=== PATIENT | female | born 1965 | race Two or more races ===

== ENCOUNTER 2016-10-15 10:52 | Emergency (ER) | payer MEDICAID ==
[~2016-10-15] VITALS: Ht 152.4 cm; Wt 62.0 kg
[2016-10-15] MEDS ORDERED: SODIUM CHLORIDE 0.9% 1,000 ML IV ONE (11:17)
[2016-10-15] MEDS ORDERED: LORazepam 2 MG/ML, 1ML IVPush ONE (11:30)
[2016-10-15] MEDS ORDERED: ASPIRIN 81 MG TABLET CHEW PO ONE (11:30)
[2016-10-15] MEDS ORDERED: NITR0.4T8 SL (11:40)
[2016-10-15] MEDS ORDERED: HYDR25TA6 PO (11:40)
[2016-10-15] MEDS ORDERED: LISI40TA PO (11:40)
[2016-10-15] MEDS ORDERED: [UNRECOGNIZED DRUG - REMARK] PO (11:41)
[2016-10-15 11:42] LABS: BLOOD UREA NITROGEN 14 mg/dL (7-18)
[2016-10-15 11:49] LABS: ASPARTATE AMINO TRANSFERASE 14 U/L (15-37)
[2016-10-15 11:50] LABS: IS PT STATUS REG ER OR PRE ER? YES
[2016-10-15 12:03] VITALS: BP 155/84
[2016-10-15] MEDS ORDERED: METHOCARBAMOL 750 MG TABLET PO ONE (12:30)
[2016-10-15] MEDS ORDERED: HYDROcodone/APAP 5/325 TABLET PO ONE (12:30)
[2016-10-15] MEDS ORDERED: ONDANSETRON 2MG/ML, 2ML IVPush ONE (12:30)
== END 2016-10-15 14:35 | disposition home or self-care (01) ==
LOC: ED 14:05
DX: M54.41 Lumbago with sciatica, right side (principal); D72.829 Elevated white blood cell count, unspecified; I10 Essential (primary) hypertension; Z86.73 Personal history of transient ischemic attack (TIA), and cerebral infarction without residual deficits
CPT/HCPCS: 36415; 71010; 72110; 80047; 80053; 81001; 83605; 84484; 85025; 85610; 87086; 93005; 96361; 96374; 96375; 99285; J2060; J2405; J7030

== ENCOUNTER 2016-10-15 11:05 | Emergency (ER) | payer OTHER ==
[2016-10-15] MEDS ORDERED: ASPIRIN 81 MG TABLET CHEW ONE (11:30)
[2016-10-15] MEDS ORDERED: LORazepam 2 MG/ML, 1ML ONE (11:31)
[2016-10-15] MEDS ORDERED: HYDR25TA6 PO (11:40)
[2016-10-15] MEDS ORDERED: LISI40TA PO (11:40)
[2016-10-15] MEDS ORDERED: NITR0.4T8 SL (11:40)
[2016-10-15] MEDS ORDERED: [UNRECOGNIZED DRUG - REMARK] PO (11:41)
[2016-10-15] MEDS ORDERED: ONDANSETRON 2MG/ML, 2ML ONE (12:41)
[2016-10-15] MEDS ORDERED: METHOCARBAMOL 750 MG TABLET ONE (12:41)
[2016-10-15] MEDS ORDERED: HYDROcodone/APAP 5/325 TABLET ONE (12:41)
== END 2016-10-15 11:12 ==
LOC: ED 11:10
DX: Z02.9 Encounter for administrative examinations, unspecified (principal)

== ENCOUNTER 2016-12-18 21:39 | Emergency (ER) | payer MEDICAID ==
[~2016-12-18] VITALS: Ht 152.4 cm; Wt 65.1 kg
[~2016-12-18 21:39] MED LIST: HYDR25TA6 PO; LISI40TA PO; NITR0.4T28 SL; [UNRECOGNIZED DRUG - REMARK] PO
[2016-12-18] MEDS ORDERED: HYDROcodone/APAP 5/325 TABLET PO STA (22:26)
[2016-12-18] MEDS ORDERED: ONDANSETRON ODT 4 MG PO ONE (22:30)
[2016-12-18] MEDS ORDERED: ONDANSETRON ODT 4 MG ONE (22:39)
[2016-12-18] MEDS ORDERED: HYDROcodone/APAP 5/325 TABLET ONE (22:40)
[2016-12-18 23:30] VITALS: BP 158/73
== END 2016-12-19 00:16 | disposition home or self-care (01) ==
LOC: ED 22:52
DX: S39.012A Strain of muscle, fascia and tendon of lower back, initial encounter (principal); S30.0XXA Contusion of lower back and pelvis, initial encounter; J20.8 Acute bronchitis due to other specified organisms; B97.89 Other viral agents as the cause of diseases classified elsewhere; I10 Essential (primary) hypertension; Z86.73 Personal history of transient ischemic attack (TIA), and cerebral infarction without residual deficits; F17.210 Nicotine dependence, cigarettes, uncomplicated; W19.XXXA Unspecified fall, initial encounter; Y93.89 Activity, other specified; Y99.8 Other external cause status; Y92.009 Unspecified place in unspecified non-institutional (private) residence as the place of occurrence of the external cause
CPT/HCPCS: 71020; 72072; 72110; 72220; 93005; 99284; Q0162

== ENCOUNTER 2017-03-20 22:01 | Emergency (ER) | payer MEDICAID ==
[~2017-03-20] VITALS: Ht 152.4 cm; Wt 64.0 kg
[2017-03-20] MEDS ORDERED: OXYcodone/APAP 5/325MG TABLET ONE (22:54)
[2017-03-20] MEDS ORDERED: ONDANSETRON ODT 4 MG ONE (22:54)
[2017-03-20] MEDS ORDERED: OXYcodone/APAP 5/325MG TABLET PO ONE (23:00)
[2017-03-20] MEDS ORDERED: ONDANSETRON ODT 4 MG PO ONE (23:00)
[2017-03-20 23:36] VITALS: BP 155/85
[2017-03-20 23:45] LABS: CULTURE INDICATED? YES; MICROSCOPIC INDICATED
== END 2017-03-21 00:47 | disposition home or self-care (01) ==
LOC: ED 23:59
DX: S39.012A Strain of muscle, fascia and tendon of lower back, initial encounter (principal); I10 Essential (primary) hypertension; F17.200 Nicotine dependence, unspecified, uncomplicated; X58.XXXA Exposure to other specified factors, initial encounter; Y93.89 Activity, other specified; Y99.8 Other external cause status; Y92.89 Other specified places as the place of occurrence of the external cause
CPT/HCPCS: 72110; 81001; 87086; 99285; Q0162

== ENCOUNTER 2017-05-09 13:57 | Emergency (ER) | payer MEDICAID ==
[~2017-05-09] VITALS: Ht 152.4 cm; Wt 63.2 kg
[2017-05-09] MEDS ORDERED: FAMOTIDINE 20 MG TABLET PO ONE (14:30)
[2017-05-09] MEDS ORDERED: FAMOTIDINE 20 MG TABLET ONE (15:03)
[2017-05-09 15:12] VITALS: BP 149/90
[2017-05-09] MEDS ORDERED: HYDROcodone/APAP 5/325 TABLET PO ONE (15:33)
[2017-05-09] MEDS ORDERED: HYDROcodone/APAP 5/325 TABLET ONE (15:51)
== END 2017-05-09 16:06 | disposition home or self-care (01) ==
LOC: ED 15:30
DX: L03.114 Cellulitis of left upper limb (principal); I10 Essential (primary) hypertension
CPT/HCPCS: 99284; J7512; Q0177

== ENCOUNTER 2017-11-27 22:59 | Emergency (ER) | payer MEDICAID ==
[~2017-11-27] VITALS: Ht 152.4 cm; Wt 62.0 kg
[~2017-11-27 22:59] MED LIST changes: +GABA600T2 PO
[2017-11-27] MEDS ORDERED: PLEASE ENTER HEIGHT AND WEIGHT MC SCH (23:30)
[2017-11-27] MEDS ORDERED: METOPROLOL TARTRATE 50 MG TABLET PO ONE (23:30)
[2017-11-27] MEDS ORDERED: METOPROLOL TARTRATE 25 MG TABLET ONE (23:33)
[2017-11-27 23:38] LABS: BASOPHILS # (AUTO) 0.14 x10^3/uL (0-0.1); BASOPHILS % (AUTO) 1 % (0-1); EOSINOPHILS # (AUTO) 0.29 x10^3/uL (0-0.4); EOSINOPHILS % (AUTO) 2 % (1-7); LYMPHOCYTES # (AUTO) 3.43 x10^3/uL (1-3.4); LYMPHOCYTES % (AUTO) 23 % (22-44); MD NO; MEAN CORPUSCULAR HEMOGLOBIN 31.4 pg (27.0-34.8); MEAN CORPUSCULAR HGB CONC 33.8 g/dL (32.4-35.8); MEAN CORPUSCULAR VOLUME 92.9 fL (80-100); MEAN PLATELET VOLUME 8.3 fL (7.4-10.4); MONOCYTES % (AUTO) 5 % (2-9); NEUTROPHILS # (AUTO) 10.13 x10^3/uL (1.8-6.8); NEUTROPHILS % (AUTO) 69 % (42-75); PLATELET COUNT 374 x10^3/uL (130-400); RED BLOOD COUNT 4.74 x10^6/uL (3.82-5.3); RED CELL DISTRIBUTION WIDTH 13.8 % (9.6-15.2)
[2017-11-27 23:47] LABS: ALBUMIN 3.8 g/dL (3.4-5.0); ANION GAP 5 mmol/L (5-15); CALCIUM 8.9 mg/dL (8.5-10.1); CHLORIDE 107 mmol/L (98-107)
[2017-11-27 23:52] LABS: TROPONIN I 0.019 ng/mL (0.000-0.045)
[2017-11-28] MEDS ORDERED: LABETALOL 5MG/ML, 20ML IVPush ONE (00:30)
[2017-11-28] MEDS ORDERED: HYDROCHLOROTHIAZIDE 25 MG TABLET PO ONE (00:30)
[2017-11-28] MEDS ORDERED: LISINOPRIL 10 MG TABLET PO ONE (00:30)
[2017-11-28] MEDS ORDERED: LABETALOL 5MG/ML, 20ML ONE (00:35)
[2017-11-28 01:12] VITALS: BP 199/97
[2017-11-28] MEDS ORDERED: ONDANSETRON ODT 4 MG ONE (01:20)
[2017-11-28] MEDS ORDERED: ONDANSETRON ODT 4 MG PO ONE (01:30)
== END 2017-11-28 01:49 | disposition home or self-care (01) ==
LOC: ED 11-28 01:43
DX: I10 Essential (primary) hypertension (principal); E78.5 Hyperlipidemia, unspecified; Z86.73 Personal history of transient ischemic attack (TIA), and cerebral infarction without residual deficits
CPT/HCPCS: 36415; 71045; 80048; 82040; 84484; 85025; 93005; 96374; 99285; Q0162